=== PATIENT | female | born 1985 | race Two or more races ===

== ENCOUNTER 2020-02-28 09:29 | Day surgery (SDC) | payer OTHER ==
[~2020-02-28 09:29] MED LIST: SINGULAIR10 MG PO; VENTOLIN HFA18 GM IH
[2020-02-28] MEDS ORDERED: MORGIDOX100 MG PO (16:27)
[2020-02-28] MEDS ORDERED: Tylenol #3 PO (16:27)
== END 2020-02-28 20:15 | disposition home or self-care (01) ==
LOC: CIR.AMB 09:29
PROVIDERS: ATTEND Obstetrics & Gynecology
DX: D25.0 Submucous leiomyoma of uterus (principal); N84.0 Polyp of corpus uteri; Z20.828 Contact with and (suspected) exposure to other viral communicable diseases

== ENCOUNTER 2024-01-12 11:45 | Inpatient (IN) | payer OTHER ==
[~2024-01-12] VITALS: Ht 157.5 cm; Wt 86.2 kg
[~2024-01-12 11:45] MED LIST changes: +MORGIDOX100 MG PO; +Tylenol #3 PO
[2024-01-19] MEDS ORDERED: CEFOXITIN SODIUM 2,000 MG VIAL IV ONE (11:15)
[2024-01-19] MEDS ORDERED: RINGERS SOLUTION,LACTATED 1,000 ML IV SCH (12:30)
[2024-01-19] MEDS ORDERED: MEPERIDINE HCL/PF 50 MG/ML VIAL IV SCH (12:32)
[2024-01-19] MEDS ORDERED: PROMETHAZINE HCL 25 MG/ML AMPUL IV SCH (12:33)
[2024-01-19] MEDS ORDERED: MORPHINE SULFATE 4 MG/ML VIAL IV ONE (12:50)
[2024-01-19 14:58] LABS: HEMATOCRIT 36.4 % (36.0-45.00); MEAN CELL VOLUME 84.8 fL (80.00-100.00); MEAN CORPUSCULAR HEMOGLOBIN 28.1 pg (27.00-32.0); MEAN CORPUSCULAR HGB CONC 33.1 g/dl (32.0-36.0); PLATELET COUNT 392 K/uL (150-450); RED BLOOD COUNT 4.29 M/uL (4.00-6.00); RED CELL DISTRIBUTION WIDTH 14.3 % (11.5-14.5)
[2024-01-19] MEDS ORDERED: SIMETHICONE 125 MG CAPSULE PO SCH (17:00)
[2024-01-19 17:11] VITALS: BP 110/64
[2024-01-20 01:03] VITALS: BP 102/61
[2024-01-20 06:46] VITALS: BP 104/70
[2024-01-20 08:30] VITALS: BP 120/70
[2024-01-20] MEDS ORDERED: NAPROXEN 500 MG TABLET PO SCH (09:00)
[2024-01-20] MEDS ORDERED: ACETAMINOPHEN WITH CODEINE 1 UDTAB TABLET PO PRN (09:00)
[2024-01-20 13:09] VITALS: BP 100/68
[2024-01-20] MEDS ORDERED: PATIENTS OWN MEDICATION (MEDICAMENTO EN PISO) PO SCH ×2 (13:58→21:00)
[2024-01-20 16:00] VITALS: BP 134/80
[2024-01-20 20:00] VITALS: BP 100/68
[2024-01-20] MEDS ORDERED: CLONAZEPAM 0.5 MG TABLET PO SCH (21:00)
[2024-01-21 00:42] VITALS: BP 100/68
[2024-01-21 05:49] VITALS: BP 119/68
[2024-01-21 08:20] VITALS: BP 120/83
[2024-01-21 15:47] VITALS: BP 109/75
[2024-01-22] VITALS: BP 97/66
[2024-01-22 08:00] VITALS: BP 105/72
[2024-01-22] MEDS ORDERED: NAPR500T14 PO (09:03)
== END 2024-01-22 09:54 | disposition home or self-care (01) | DRG 743 ==
LOC: O/R 01-19 06:50 → OB/GYN 01-19 06:50 → SURH 01-19 10:30 → OB/GYN 01-19 13:41
PROVIDERS: ADMIT Obstetrics & Gynecology; ATTEND Obstetrics & Gynecology
PROC: 0UB90ZZ Excision of Uterus, Open Approach (ICD-10-PCS; principal; 2024-01-19 10:30)
DX: D25.1 Intramural leiomyoma of uterus (principal); N92.0 Excessive and frequent menstruation with regular cycle; R10.2 Pelvic and perineal pain; Z20.822 Contact with and (suspected) exposure to COVID-19